=== PATIENT | female | born 1990 | race Caucasian/White ===

== ENCOUNTER 2020-06-29 13:58 | Outpatient (REF) | payer OTHER, SELFPAY ==
--- NOTE | 2020-06-29 14:03 | XR_ITS ---
EXAMINATION: XR FINGER, RIGHT CLINICAL INFORMATION: Injury right fifth digit COMPARISON: None TECHNIQUE: The views of the right fifth digit. FINDINGS: There is a 1.1 cm radiopaque density along the superficial subcutaneous soft tissues dorsal distal fifth digit. No additional radiopaque density seen. There is no fracture involving the fifth digit. XR/XR finger RT min 2V IMPRESSION: Small radiopaque density along the subcutaneous the soft tissues of dorsal distal fifth digit. No gas seen. There is no fracture.
== END 2020-06-29 13:59 | disposition home or self-care (01) ==
LOC: HO.HMGCX 13:58
PROVIDERS: Visit Provider Nurse Practitioner Family
DX: S69.91XA Unspecified injury of right wrist, hand and finger(s), initial encounter (principal); X58.XXXA Exposure to other specified factors, initial encounter; Y93.9 Activity, unspecified; Y92.9 Unspecified place or not applicable; Y99.8 Other external cause status
CPT/HCPCS: 73140